=== PATIENT | female | born 1965 | race Caucasian/White ===

== ENCOUNTER → 2019-04-10 15:13 | Outpatient (BNVA) | payer OTHER, SELFPAY | PROVIDERS: Family Provider Emergency Medicine Emergency Medical Services; PCP Emergency Medicine Emergency Medical Services; Visit Provider Specialist | DX: G43.711 Chronic migraine without aura, intractable, with status migrainosus (principal) | CPT/HCPCS: 64615; J0585 ==

== ENCOUNTER → 2019-07-31 15:45 | Outpatient (BNVA) | payer OTHER, SELFPAY | PROVIDERS: Family Provider Emergency Medicine Emergency Medical Services; PCP Emergency Medicine Emergency Medical Services; Visit Provider Specialist | DX: G43.711 Chronic migraine without aura, intractable, with status migrainosus (principal) | CPT/HCPCS: 64615; J0585 ==

== ENCOUNTER 2019-09-03 00:38 | Emergency (ER) | payer OTHER, SELFPAY ==
[2019-09-03 00:39] VITALS: BP 160/99; PULSE 89; RESP 16; TEMP 36.7; O2SAT 97; BMI 25.7
--- NOTE | 2019-09-03 00:56 | XR_ITS ---
WS: [id number] XR chest 1V portable [id number] REASON FOR EXAM: Near syncope FINDINGS: Portable AP chest shows normal appearance the heart and mediastinal interfaces. Comparisons were made to October 25, 2015 with no interval changes. The lung frey are normally aerated no pneumonia, pleural effusion, pulmonary edema. The hilum and apices are normal. No osseous abnormalities. XR/XR chest 1V portable [id number] IMPRESSION: Negative chest for acute findings
--- NOTE | 2019-09-03 00:57 | CTR_ITS ---
PROCEDURE INFORMATION: Exam: CT Head Without Contrast Exam date and time: 09/03/2019 12:58 AM Age: 53 years old Clinical indication: Altered mental status/memory loss and dizziness; Additional info: Altered mental status/near syncope TECHNIQUE: Imaging protocol: Computed tomography of the head without contrast. Radiation optimization: All CT scans at this facility use at least one of these dose optimization techniques: automated exposure control; mA and/or kV adjustment per patient size (includes targeted exams where dose is matched to clinical indication); or iterative reconstruction. COMPARISON: MR head wo con* [id number] 04/15/2013 1:48 PM RADIATION DOSE METRICS: Total DLP: 945.38 mGy-cm FINDINGS: Brain: The brain is unremarkable. There is no mass effect or significant white matter disease. There is no acute intracranial hemorrhage. Ventricles: There is no significant ventricular dilation. The basal cisterns are unremarkable. Bones/joints: The calvarium is intact. Sinuses: The paranasal sinuses are clear. Mastoid air cells: The mastoid air cells are clear. Soft tissues: The visible extracranial soft tissues are unremarkable. CT/CT head wo con* [id number] IMPRESSION: No acute findings. Radiation Dose CTDIVOL = (mGy): DLP = 945.38 (mGy-cm)
[2019-09-03] MEDS: ondansetron 2 mg/ML SDV 2 mL 4 MG IVP (01:13)
[2019-09-03] MEDS: sodium chloride 0.9% 1,000 ML 100 ML IV (01:14)
--- NOTE | 2019-09-03 01:18 | ED_ITS ---
HPI - Nausea/Vomiting/Diarrhea General: Chief complaint: Nausea/Vomiting/Diarrhea Stated complaint: BLOOD PRESSURE ISSUES Time Seen by Provider: 09/03/19 00:41 History of Present Illness: HPI Narrative: Joana is a 53-year-old female who comes in complaining of waking up with difficulty with speech, feeling like her mouth was dry and having difficulty swallowing. Patient states that she has had this problem multiple times in the past and is never been able to figure out what causes the symptoms. She was having 1-2 episodes a week approximately 1- 1/2 years ago and then she had an approximate 15-month cessation of her symptoms but then developed episodes again including one in July, 1 in July and now 1 here in August. She states that usually her blood pressure will go very low with this but tonight her blood pressures been high except for 1 blood pressure in the 80s by EMS. The patient has been evaluated by the graduate fellow and he does not think it is cardiac in nature. She seen Dr. Flor who has given her an EpiPen to give herself a shot if her blood pressure stays low. Currently the patient states she is feeling gradually better. And she did wake up from sleep with the symptoms. Associated nausea: No Associated symtoms: Denies change in vision, chest pain, diaphoresis, dizziness, dysuria, fatigue, headache(s), malaise, nausea, palpitations or syncope Review of Systems Const: Denies: fever(s), chills, body aches, fatigue, malaise or diaphoresis Eyes: Denies: change in vision, blurry vision, blind spots or photophobia ENMT: Denies: throat pain, odynophagia, hoarseness, swelling of lips/tongue, ear or mastoid pain, ear discharge, change in hearing or nasal discharge Card: Denies: chest pain, palpitations, irregular heart rhythm, edema, lightheadedness, syncope, pre-syncope, dyspnea on exertion or orthopnea Resp: Denies: dyspnea, productive cough, non-productive cough, wheezing, hemoptysis or chest congestion GI: Denies: abdominal pain, nausea, vomiting, hematemesis, coffee ground emesis, heartburn, diarrhea, constipation, GI cramping, hematochezia or melena : Denies: flank pain, dysuria, urinary frequency, urinary urgency or hematuria Musc: Denies: neck pain, back pain, extremity pain, extremity swelling, joint pain, joint swelling, joint redness, joint warmth or joint stiffness Skin/Breast: Denies: rash, pruritus, erythema, skin tenderness or jaundice Neuro: Denies: headache(s), numbness in extremities, weakness in extremities, sensory changes, lack of coordination, difficulty walking, dizziness, vertigo, confusion or Slurred speech present Negro/Lymph: Denies: easy bruising, easy bleeding, petechiae, purpura or enlarged lymph nodes All/Imm: Denies: urticaria, throat swelling, tongue swelling, facial swelling or acute wheezing PFSH ED PFSH: Medical History Behcet's disease Fibromyalgia Hypertension Lupus (systemic lupus erythematosus) Raynauds disease Ulcerative colitis Social History Smoking and tobacco status: never smoked Physical Exam Const: COMMON NORMALS: no acute distress, patient oriented x3, no limitations, healthy appearing and well nourished GENERAL APPEARANCE: cooperative, well kempt and well developed HENMT: COMMON NORMALS: normocephalic, atraumatic, hearing grossly normal bilaterally, external ears normal, EAC's normal, Normal external nose present and moist oral mucous membranes HEAD & SCALP: normocephalic and atraumatic NOSE: Normal external nose present and Normal nares present EXTERNAL EAR: Yes external ears normal EXTERNAL AUDITORY CANAL: EAC's normal MOUTH: Normal oral and palatal mucosa present, lip normal and tongue normal Eye: COMMON NORMALS: Equal, round and reactive pupils present, EOMs intact bilaterally, conjunctivae normal and no scleral icterus GENERAL EYE: appearance normal, both eyes and all related structures ALIGNMENT: Yes alignment normal PERIORBITAL: periorbital findings normal EYELID: eyelids normal CONJUNCTIVA: Yes conjunctivae normal SCLERA: sclerae normal PUP IL: Yes Equal, round and reactive pupils present Neck/C-Spine: COMMON NORMALS: full ROM, no lymphadenopathy, supple, no meningeal signs and no JVD GENERAL: Yes normal visual inspection and Yes trachea midline Chest: COMMONS NORMALS: normal inspection of the chest and normal palpation of entire chest wall Resp: COMMON NORMALS: normal respiratory effort, No retractions, No use of accessory muscles and clear to auscultation bilaterally EFFORT & INSPECTION: Yes able to speak in complete sentences and Yes symmetric chest movement AUSCULTATION: clear to auscultation bilaterally, no crackles, no rales, no rhonchi and no wheezes Cardio: COMMON NORMALS: no JVD, regular rate, regular rhythm, S1 normal heart sound present, S2 normal heart sound present, No gallops present (Cardio), No clicks present (Cardio), No murmurs present (Cardio) and No rub (Cardio) RATE: regular rate RHYTHM: regular rhythm HEART SOUNDS: S1 normal heart sound present and S2 normal heart sound present GI: COMMON NORMALS: Soft to palpation and No hepatosplenomegaly present PALPATION: Yes Soft to palpation, No Tenderness to palpation present (GI), No Guarding due to palpation present (GI), No Rigid due to palpation, Yes No hepatosplenomegaly present, No Hernia present, No Palpable mass present and No Pulsatile mass present : COMMON NORMALS: Yes no CVA tenderness BLADDER/KIDNEY EXAM: Yes no CVA tenderness EXTERNAL FEMALE EXAM: No Hernia present Back/Pelvis: COMMON NORMALS: no CVA tenderness, thoracic and lumbar spine normal to inspection, no thoracic nor lumbar tenderness and thoraco-lumbar ROM n ormal Extremity: COMMON NORMALS: normal to inspection, full ROM, capillary refill normal, no joint enlargement, no clubbing, cyanosis or edema and no calf tenderness Neuro: COMMON NORMALS: patient oriented x3, CN's II-XII intact bilaterally, moves all extremities, no focal motor deficits and no sensory deficits noted MENINGEAL SIGNS: Yes no meningeal signs SPEECH: speech normal Psych: COMMON NORMALS: mental status grossly normal, Normal thought process present, cooperative, normal affect, speech normal and activity/motor behavior normal APPEARANCE: Yes well kempt SPEECH: Yes normal speech THOUGHT PROCESS: Normal thought process present Skin: COMMON NORMALS: no rashes or lesions noted, turgor normal, no jaundice, no petechiae and no mottling GENERAL SKIN EXAM: no rashes or lesions noted and turgor normal Course ED course: Arrival -patient will need a CT of her head to rule out stroke although she has no lateralizing signs and has had recurrent symptoms such as these. She understands at this time our main CT scanner is down and patients are having to be transferred to another building for this and this will delay this. Patient at this time is comfortable with this plan as she has no symptoms of stroke to her. Vital Signs: Vital signs: Vital Signs Temperature 98.0 F 09/03/19 00:39 Pulse Rate 85 09/03/19 02:00 Respiratory Rate 16 09/03/19 02:00 Blood Pressure 132/80 09/03/19 02:00 Pulse Oximetry 95 09/03/19 02:00 MDM - Nausea/Vomiting/Diarrhea MDM Narrative: Medical decision making narrative: Patient has moderately worse leukopenia than normal. She also has mild elevation her liver transaminases. I cannot determine from what she is told me what is going on. It is possible this is a Humira reaction as she had an injection earlier today. Nonetheless because of these abnormalities I have recommended and offered to admit her to the hospital but she refuses. Patient states she is back to normal and as her blood pressure did not get low at this episode she wants to go home. I have explained to her that I cannot guarantee everything will be fine with this. She understands that there is a risk of or severe permanent disability with this but she is states she has been through this so many times she does not feel that she is in danger and wants to be discharged. The patient was warned but she was welcome to return. 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 She does agree to follow-up with her doctor as soon as possible. Lab Data: Attestation: I reviewed the patient's lab results. Labs: Lab Results 09/03/19 09/03/19 09/03/19 Range/Units 01:04 01:14 01:14 WBC 2.5 L (4.0-10.0) 10^3/ uL RBC 4.00 L (4.1-5.3) 10^6/u L Hgb 13.9 (11.5-15.3) g/dL Hct 40.9 (37.0-47.0) % MCV 102.3 H (81-99) fL MCH 34.8 H (28.0-34.0) pg MCHC 34.0 (30.0-36.0) g/dL RDW 13.1 (12.1-15.1) % Plt Count 126 L (130-400) 10^3/c mm MPV 10.5 H (7.4-10.4) fL Neut % (Auto) 49.6 % Lymph % (Auto) 36.5 % Brantley % (Auto) 11.5 % Eos % (Auto) 1.6 % Baso % (Auto) 0.4 % Neut # (Auto) 1.3 L (1.8-7.7) 10^3/u L Lymph # (Auto) 0.9 (0.8-4.8) 10^3/u L Brantley # (Auto) 0.3 (0.2-0.9) 10^3/u L Eos # (Auto) 0.0 (0.0-0.8) 10^3/u L Baso # (Auto) 0.0 (0.0-0.1) 10^3/u L Nucleated RBC % (a uto) 0 % Nucleated RBCs # 0.0 /100WBC Sodium 141 (136-145) mmol/L Potassium 3.7 (3.5-5.1) mmol/L Chloride 101 (98-107) mmol/L Carbon Dioxide 29 (22-29) mmol/L Anion Gap 14.7 (5-19) BUN 25 H (6-20) mg/dL Creatinine 1.0 H (0.5-0.9) mg/dL GFR Calculation 58.0 L (90-130) mL/min Glucose 126 H (65-115) mg/dL Calculated Osmolal ity 290 (285-295) mOsm/k g Calcium 10.0 (8.5-10.5) mg/dL Magnesium 2.3 (1.7-2.3) mg/dL Total Bilirubin 0.5 (0.15-1.2) mg/dL AST 43 H (0-32) U/L ALT 76 H (0-33) U/L Alkaline Phosphata se 77 (35-105) IU/L Troponin T Baselin e 9 (0-10) ng/mL Total Protein 6.3 L (6.6-8.7) g/dL Albumin 4.2 (3.5-5.2) g/dL Globulin 2.1 (1.3-4.6) g/dL TSH 8.36 H (0.27-4.20) uIU/ mL HCG, Qual (Negative) Urine Color (Yellow) Urine Appearance (CLEAR) Urine pH (5-7) Ur Specific Gravit y (1.005-1.030) Urine Protein (Negative) Urine Glucose (UA) (Normal) Urine Ketones (Negative) Urine Blood (Negative) Urine Nitrate (Negative) Urine Bilirubin (NEGATIVE) Urine Urobilinogen (Negative) mg/dL Ur Leukocyte Jodie ase (Negative) Urine RBC (0-2) /hpf Urine WBC (0-5) /hpf Ur Squamous Epith Cells (0-5) Urine Bacteria (NONE) Urine Opiates Scre en (Negative) ng/mL Ur Barbiturates Sc reen (Negative) ng/mL Ur Phencyclidine S crn (Negative) ng/mL Ur Amphetamines Sc reen (Negative) ng/mL U Benzodiazepines Scrn (Negative) ng/mL Urine Cocaine Scre en (Negative) ng/mL U Marijuana (THC) Screen (Negative) ng/mL Ethyl Alcohol < 10 (0-10) mg/dL 09/03/19 09/03/19 09/03/19 Range/Units 01:14 01:35 01:35 WBC (4.0-10.0) 10^3/ uL RBC (4.1-5.3) 10^6/u L Hgb (11.5-15.3) g/dL Hct (37.0-47.0) % MCV (81-99) fL MCH (28.0-34.0) pg MCHC (30.0-36.0) g/dL RDW (12.1-15.1) % Plt Count (130-400) 10^3/c mm MPV (7.4-10.4) fL Neut % (Auto) % Lymph % (Auto) % Brantley % (Auto) % Eos % (Auto) % Baso % (Auto) % Neut # (Auto) (1.8-7.7) 10^3/u L Lymph # (Auto) (0.8-4.8) 10^3/u L Brantley # (Auto) (0.2-0.9) 10^3/u L Eos # (Auto) (0.0-0.8) 10^3/u L Baso # (Auto) (0.0-0.1) 10^3/u L Nucleated RBC % (a uto) % Nucleated RBCs # /100WBC Sodium (136-145) mmol/L Potassium (3.5-5.1) mmol/L Chloride (98-107) mmol/L Carbon Dioxide (22-29) mmol/L Anion Gap (5-19) BUN (6-20) mg/dL Creatinine (0.5-0.9) mg/dL GFR Calculation (90-130) mL/min Glucose (65-115) mg/dL Calculated Osmolal ity (285-295) mOsm/k g Calcium (8.5-10.5) mg/dL Magnesium (1.7-2.3) mg/dL Total Bilirubin (0.15-1.2) mg/dL AST (0-32) U/L ALT (0-33) U/L Alkaline Phosphata se (35-105) IU/L Troponin T Baselin e (0-10) ng/mL Total Protein (6.6-8.7) g/dL Albumin (3.5-5.2) g/dL Globulin (1.3-4.6) g/dL TSH (0.27-4.20) uIU/ mL HCG, Qual Negative (Negative) Urine Color Yellow (Yellow) Urine Appearance Clear (CLEAR) Urine pH 7 (5-7) Ur Specific Gravit y 1.010 (1.005-1.030) Urine Protein Neg (Negative) Urine Glucose (UA) Norm (Normal) Urine Ketones Negative (Negative) Urine Blood Neg (Negative) Urine Nitrate Negative (Negative) Urine Bilirubin Neg (NEGATIVE) Urine Urobilinogen Norm (Negative) mg/dL Ur Leukocyte Jodie ase Negative (Negative) Urine RBC Rare (0-2) /hpf Urine WBC Rare (0-5) /hpf Ur Squamous Epith Cells Rare (0-5) Urine Bacteria Trace (NONE) Urine Opiates Scre en Negative (Negative) ng/mL Ur Barbiturates Sc reen Negative (Negative) ng/mL Ur Phencyclidine S crn Negative (Negative) ng/mL Ur Amphetamines Sc reen Negative (Negative) ng/mL U Benzodiazepines Scrn Negative (Negative) ng/mL Urine Cocaine Scre en Negative (Negative) ng/mL U Marijuana (THC) Screen Negative (Negative) ng/mL Ethyl Alcohol (0-10) mg/dL Discharge Plan Discharge Patient Disposition: Left Against Medical Advice Clinical Impression: Elevated liver enzymes Leukopenia Qualifiers: Leukopenia type: unspecified Qualified Code(s): D72.819 - Decreased white blood cell count, unspecified Condition: Stable Prescriptions: No Action Botox 100 unit recon soln 155 unit SUBCUT ONCE Qty: 2 RF: 0 adalimumab 40 mg/0.8 mL pen injector kit 40 mg SUBCUT .WEEKLY RF: 0 azathioprine 100 mg tablet 200 mg PO DAILY RF: 0 colchicine 0.6 mg capsule 0.6 mg PO BID RF: 0 tizanidine 4 mg capsule 4 mg PO Q8H RF: 0 tramadol 50 mg tablet 50 mg PO QID PRNRF: 0 Discharge Orders: Discharge Order (Routine); Ordered 09/03/19 Ordered By: Marie Liao Referrals: Kishore Miguel, [Primary Care Provider] - 1-3 days Discharge Diet: Advance as tolerated Discharge Activity: Increase activity as tolerated Activity Restrictions/Additional Instructions: You're leaving AGAINST MEDICAL ADVICE and are at risk for or severe permanent disability by doing so. You are more than welcome to return at any time for recheck and for further evaluation and care suture change you change your mind. A cause for your symptoms and your abnormalities in lab have not been determined. If your symptoms change, return or worsen in any way please return to the ER immediately for recheck. Be certain to follow-up with your doctor as soon as possible for recheck and for further evaluation and care. Discharge Date/Time: 09/03/19 03:42 Coding Level of Care Code ED Asset Protection Agent for Della Fwd Exam Comprehensive
[2019-09-03 01:40] LABS: Basophils % 0.4 %; Eosinophils % 1.6 %; Hematocrit 40.9 % (37.0-47.0); Hemoglobin 13.9 g/dL (11.5-15.3); Lymphocytes # 0.9 10^3/uL (0.8-4.8); Lymphocytes % 36.5 %; Mean Corpuscular Hemoglobin 34.8 pg (28.0-34.0); Mean Corpuscular Volume 102.3 fL (81-99); Mean Platelet Volume 10.5 fL (7.4-10.4); Monocytes # 0.3 10^3/uL (0.2-0.9); Monocytes % 11.5 %; Neutrophils # 1.3 10^3/uL (1.8-7.7); Neutrophils % 49.6 %; Nucleated Red Blood Cells % 0 %; Platelet Count 126 10^3/cmm (130-400); Red Cell Distribution Width 13.1 % (12.1-15.1); White Blood Count 2.5 10^3/uL (4.0-10.0)
[2019-09-03 01:46] VITALS: BP 95/62; PULSE 73; RESP 16; O2SAT 100
[2019-09-03 02:00] VITALS: BP 132/80; PULSE 85; RESP 16; O2SAT 95
[2019-09-03 02:03] LABS: HCG, Serum Qual Negative (Negative)
[2019-09-03 02:05] LABS: Alanine Aminotransferase 76 U/L (0-33); Albumin Level 4.2 g/dL (3.5-5.2); Alkaline Phosphatase 77 IU/L (35-105); Anion Gap 14.7 (5-19); Aspartate Amino Transferase 43 U/L (0-32); Blood Urea Nitrogen 25 mg/dL (6-20); Carbon Dioxide 29 mmol/L (22-29); Chloride 101 mmol/L (98-107); Globulin 2.1 g/dL (1.3-4.6); Glucose 126 mg/dL (65-115); Magnesium 2.3 mg/dL (1.7-2.3); Osmolality Calculated 290 mOsm/kg (285-295); Potassium 3.7 mmol/L (3.5-5.1); Sodium 141 mmol/L (136-145); Thyroid Stimulating Hormone 8.36 uIU/mL (0.27-4.20); Total Bilirubin 0.5 mg/dL (0.15-1.2); Total Protein 6.3 g/dL (6.6-8.7)
[2019-09-03 02:07] LABS: Alcohol Level < 10 mg/dL (0-10)
[2019-09-03 02:25] LABS: Bacteria Urine TRACE; Bilirubin Urine Neg (NEGATIVE); Blood Urine Neg (Negative); Glucose Urine UA Norm (Normal); Ketones Urine Negative (Negative); Leukocyte Esterase Urine Negative (Negative); Nitrate Urine Negative (Negative); Protein Urine Neg (Negative); RBC Urine RARE /hpf (0-2); Squamous Epithelial Cell Urine RARE (0-5); Urine Appearance Clear (CLEAR); Urine Color Yellow (Yellow); Urobilinogen Urine Norm (Negative); WBC Urine RARE /hpf (0-5); pH Urine 7 (5-7)
[2019-09-03 03:03] LABS: Amphetamines Screen Urine Negative (Negative); Barbiturates Screen Urine Negative (Negative); Benzodiazepines Screen Urine Negative (Negative); Cocaine Screen Urine Negative (Negative); Opiate Screen Urine Negative (Negative); PCP Screen Urine Negative (Negative); THC Screen Urine Negative (Negative)
[2019-09-03 03:07] LABS: Troponin(5th) Baseline 9 ng/mL (0-10)
--- NOTE | 2019-09-03 03:09 | PC.NURSE ---
Patient has decided to go home and follow up with her pcp. Patient states she feels better and will reurn if needed. notified that [email or web address] doesn't want to stay for recommended further evaluation.
== END 2019-09-03 03:42 | disposition left against medical advice (07) ==
PROVIDERS: Emergency Provider Emergency Medicine; PCP Emergency Medicine Emergency Medical Services
DX: D72.819 Decreased white blood cell count, unspecified (principal); R74.8 Abnormal levels of other serum enzymes; I10 Essential (primary) hypertension; Z79.899 Other long term (current) drug therapy
CPT/HCPCS: 12345; 36415; 70450; 71045; 80053; 80306; 80307; 81001; 83735; 84443; 84484; 84703; 85025; 96361; 96374; 99282; 99284; J2405; J7030

== ENCOUNTER → 2019-10-23 14:49 | Outpatient (BNVA) | payer OTHER, SELFPAY | PROVIDERS: Family Provider Emergency Medicine Emergency Medical Services; PCP Emergency Medicine Emergency Medical Services; Visit Provider Specialist | DX: G43.711 Chronic migraine without aura, intractable, with status migrainosus (principal); M32.9 Systemic lupus erythematosus, unspecified; I73.00 Raynaud's syndrome without gangrene; M79.7 Fibromyalgia; K51.90 Ulcerative colitis, unspecified, without complications; R55 Syncope and collapse | CPT/HCPCS: 64615; 99213; J0585 ==

== ENCOUNTER → 2020-03-11 15:09 | Outpatient (BNVA) | payer OTHER, SELFPAY | PROVIDERS: Family Provider Emergency Medicine Emergency Medical Services; PCP Emergency Medicine Emergency Medical Services; Visit Provider Specialist | DX: G43.711 Chronic migraine without aura, intractable, with status migrainosus (principal); M32.9 Systemic lupus erythematosus, unspecified | CPT/HCPCS: 64615; J0585 ==

== ENCOUNTER 2020-03-30 09:03 | Outpatient (CLI) | payer OTHER, SELFPAY ==
--- NOTE | 2020-03-30 11:27 | XRR_ITS ---
PROCEDURE INFORMATION: Exam: XR Left Femur Exam date and time: 03/30/2020 11:30 AM Age: 54 years old Clinical indication: Patient HX: C/O pain left hip and thigh; Additional info: Pain in left hip thigh TECHNIQUE: Imaging protocol: XR Left femur. Views: 2 views. COMPARISON: No relevant prior studies available. FINDINGS: Bones/joints: No fracture. No dislocation. No hip or knee joint space narrowing. No periosteal reaction. No bone destruction. Soft tissues: No acute soft tissue abnormality. XR/XR femur LT min 2V* [id number] IMPRESSION: No acute osseous abnormality.
--- NOTE | 2020-03-30 11:27 | XRR_ITS ---
PROCEDURE INFORMATION: Exam: XR Left Hip with Pelvis when Performed Exam date and time: 03/30/2020 11:30 AM Age: 54 years old Clinical indication: Hip pain; Patient HX: C/O pain left hip and thigh for 6 weeks; Additional info: Pain in L hip thigh TECHNIQUE: Imaging protocol: XR Left hip with pelvis when performed. Views: 2 or 3 views. COMPARISON: CT Chest/Abdomen/Pelvis w IV* 09/21/2017 11:18 AM FINDINGS: Bones/joints: No fracture. No dislocation. No hip joint space narrowing. No periosteal reaction. No bone destruction. 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 Soft tissues: No acute soft tissue abnormality. XR/XR hip LT 2-3V wo/w pel* [id number] IMPRESSION: No acute osseous abnormality.
[2020-03-30 12:14] LABS: Basophils % 0.6 %; Eosinophils % 0.9 %; Hematocrit 47.1 % (37.0-47.0); Hemoglobin 15.4 g/dL (11.5-15.3); Lymphocytes # 1.1 10^3/uL (0.8-4.8); Lymphocytes % 34.2 %; Mean Corpuscular HGB Conc 32.7 g/dL (30.0-36.0); Mean Corpuscular Hemoglobin 32.8 pg (28.0-34.0); Mean Corpuscular Volume 100.2 fL (81-99); Mean Platelet Volume 9.7 fL (7.4-10.4); Monocytes # 0.3 10^3/uL (0.2-0.9); Monocytes % 8.1 %; Neutrophils # 1.81 10^3/uL (1.8-7.7); Neutrophils % 56.2 %; Nucleated Red Blood Cells % 0 %; Platelet Count 151 10^3/cmm (130-400); Red Cell Distribution Width 12.1 % (12.1-15.1); White Blood Count 3.2 10^3/uL (4.0-10.0)
[2020-03-30 12:30] LABS: LAB Peripheral Smear Sent for Review
[2020-03-30 12:39] LABS: Alanine Aminotransferase 25 U/L (0-33); Albumin Level 4.3 g/dL (3.5-5.2); Alkaline Phosphatase 80 IU/L (35-105); Anion Gap 12.2 (5-19); Aspartate Amino Transferase 22 U/L (0-32); Blood Urea Nitrogen 18 mg/dL (6-20); Calcium 9.9 mg/dL (8.5-10.5); Carbon Dioxide 31 mmol/L (22-29); Chloride 101 mmol/L (98-107); Globulin 2.9 g/dL (1.3-4.6); Glomerular Filtration Rate 87.2 mL/min (90-130); Glucose 119 mg/dL (65-115); Lactate Dehydrogenase 151 U/L (135-214); Osmolality Calculated 293 mOsm/kg (285-295); Potassium 4.2 mmol/L (3.5-5.1); Sodium 140 mmol/L (136-145); Total Bilirubin 0.7 mg/dL (0.15-1.2); Total Protein 7.2 g/dL (6.6-8.7)
[2020-03-30 12:54] LABS: Erythrocyte Sedimentation Rate 8 mm/hr (0-15)
--- NOTE | 2020-03-30 14:50 | ONC CON_ITS ---
Dr. Frausto New Patient Note Patient: Joana Monahan Unit #: [id number]: 1965 Dicatated By: Nam Frausto M.D.Date of Visit: Mar 30, 2020 Onc MED New Patient/Consult Referring Physician: Eri Hou Dr., M.D. Chief Complaint: High blood count. History of Present Illness: This is a 54-year-old woman with elevated hemoglobin/hematocrit levels. She has multiple medical illnesses including hypertension, asthma, and degenerative disease of the cervical spine. She also has multiple autoimmune disorders including Behcet's syndrome, systemic lupus erythematosus, Raynaud's phenomenon, and ulcerative colitis. She has additional diagnoses of irritable bowel syndrome and fibromyalgia. I am asked to see her in regard to elevated hemoglobin/hematocrit levels. She says they have been elevated to varying degrees for the past 4 years or so. In reviewing her laboratory studies from [place], she had a total of 4 CBCs done between May 22, 2019 and March 11, 2020. These showed mildly elevated hemoglobin levels, ranging from 15.1 to 16.0 g with hematocrit levels ranging from 45.9% to 47.6%. The red cell indices were slightly macrocytic. White blood cell counts have been borderline low to slightly decreased, ranging from 3.5 to 4.3. Platelet counts have consistently been normal, ranging from 140,000 to 173,000. She complains that she has difficulty sleeping and that she is fatigued during the daytime. However, she is doing housework and she walks daily. Her ECOG score is 1. Her appetite comes and goes. She did previously been able to lose 70 pounds, but since summer she has regained 16 pounds. She has not had fever. She does tend to feel warm every evening and she keeps her bedroom temperature at 60 degrees to keep from sweating at night. She intermittently has mild sores associated with the Behcet's syndrome. She sometimes has shortness of breath. She uses her inhaler just very occasionally. She has not had chest pain. Despite having hypertension, she has had episodes of low blood pressure occurring at night. She does not complain of nausea. She does have acid reflux symptoms. Her bowel function tends to vary between constipation and diarrhea. She says that once a year she has to take steroid therapy for 1 to 2 months for liquid bloody stools. Bladder function has been okay except for occasional incontinence. She does get vaginal ulcers with the Behcet's syndrome. She sees a chiropractor once a week for neck pain and torticollis. She also has some joint pain, mainly in the knees and ankles. Recently she has been having bone pain in her left hip and femur. She has chronic migraine, for which she has been getting Botox injections. She has no focal neurologic symptoms, but she does report having occasional hallucinations. Past Medical History: Her medical history includes asthma, Behcet's disease, chronic migraine, degenerative disease of the cervical spine, fibromyalgia, hypertension, intraventricular septal hypertrophy (HOCM), irritable bowel syndrome, Raynaud's phenomenon, systemic lupus erythematosus, ulcerative colitis, and visual hallucinations. Past Surgical History: Her procedural history includes bladder sling x 2, cervical fusions at C4-5 and at C5-6, section x 3, hysterectomy with left unilateral oophorectomy, sinus surgery x 2, tubal ligation in 1996 followed by reanastomosis in 2000, wrist surgery bilaterally, left inguinal node excision in 2012, tracholectomy and right oophorectomy in 2009, and mammoplasty, mastoplexy, abdominoplasty in 1998. Medications: Acetaminophen 2 Tablet (of 500 mg) Oral daily, Adalimumab 1 Dose(s) (of 40 mg/0.8mL) Subcutaneous q, Adult Gummy 2 Tablet Tablet, chewable Oral daily, Albuterol Sulfate 2 Puff(s) (of 108 (90 base) mcg/act) Aerosol Powder, Breath Activated Inhalation PRN, Amino Acids 2 Capsule Oral daily, B Complex 1 Tablet Oral daily, Calcium 1 Tablet (of 500 mg) Oral daily, Colchicine 1 Tablet (of 0.6 mg) Oral b.i.d., Cyclobenzaprine HCl (10 mg) Tablet Oral daily, Elderberry 2 Tablet Syrup Oral daily, Furosemide 1 Tablet (of 40 mg) Oral PRN, liver essential 3 Capsule daily, Magnesium 2 Capsule (of 400 mg) Oral daily, Melatonin 1 Tablet (of 5 mg) Oral at bedtime, Probiotic Daily 1 Capsule Oral daily, probiotic/prebiotic/fiber 2 Capsule daily, QUEtiapine Fumarate ER 1 Tablet (of 150 mg) Tablet SR 24 HR Oral daily, Vitamin C 2 Capsule (of 500 mg) Oral b.i.d., Zinc Gluconate 1 Capsule (of 50 mg) Oral daily Allergies: Band-Aid Clear Assorted, grass, Sulfa Drugs, and wheat. Social History: Ms. Monahan is . 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 She is a non-smoker. She drinks wine 3 times a week. Family History: Both parents are still living, father at age 78 and mother at age 76. Father has heart disease and he also has Graves' disease, as does his sister. Mother has been treated for kidney cancer. A sister has alcoholism and heart disease. Review Of Symptoms: Constitutional - She generally feels fatigued. Her energy is fair. She works full-time from home. She is able to do house work and light to moderate walking daily. Her appetite is good and she has gained about 16 pounds since last summer. No fevers. She has hot flashes with sweating nearly every evening. ECOG score is 1, ENMT - She has chronic sinusitis. No mouth sores. No sore throat or difficulty swallowing, Hematologic/Lymphatic - She bruises easily, Respiratory - She has occasional shortness of breath and uses albuterol nebulizers. No cough. No pleuritic pain or hemoptysis, Cardiovascular - No angina pain. No palpitations, Gastrointestinal - No nausea or vomiting. She has occasional acid reflux, she uses apple cider vinegar for this. She has ulcerative colitis. No diarrhea or constipation. No blood in the stool or black stools. She has a colonoscopy last week, Genitourinary (F) - No dysuria or hematuria. No urinary frequency. No urgency or incontinence, Musculoskeletal - She has been having left sided hip pain that radiates down into her femur, Integumentary - No skin complications, Neurologic - No headache. She sometimes feels dizzy. No numbness or tingling. No other focal neurologic symptoms. She has Raynaud's, Psychiatric - She has anxiety. No depression. She does not sleep well. Vital Signs: Performed on Mar 30, 2020 09:25: 3, 27.78, 2.11 sq.m, 71.00 in, 98 %, 69 /min, 15 /min, 139/83 mm(hg), 97.4 F (LOW), and 199.2 lbs (LOW). Physical Examination: Constitutional - She does not appear acutely ill, Eyes - Sclerae nonicteric. Conjunctivae clear, ENMT - No lesions noted in the oral cavity, Neck - No mass or thyromegaly, Hematologic/Lymphatic - No cervical, clavicular, or axillary adenopathy, Respiratory - Lungs are clear with good air movement bilaterally, Cardiovascular - Heart rhythm is regular. There is no murmur, gallop, or rub noted, Abdomen - Soft and non-tender. Liver and spleen are not enlarged. There is no abdominal mass or ascites noted. There is no inguinal adenopathy noted, Extremities - No edema. Her feet are cold to touch, but pedal pulses are palpable bilaterally, Integumentary - No rashes. No suspicious skin lesions noted, Neurologic - No focal neurologic deficits noted. Impression: 1. Patient with mildly elevated hemoglobin/hematocrit levels. Etiology is uncertain, but the clinical picture would appear to be most consistent with decreased plasma volume, i.e stress erythrocytosis . There is no evidence for secondary polycythemia due to underlying hypoxia. Polycythemia vera also appears unlikely by clinical evaluation, though at this point it is not excluded. 2. She has recent onset of new bone pain in her left hip/left femur. 3. She has red blood cell macrocytosis and mild leukopenia, which is most likely medication related. Her other medical illnesses include: 4. Asthma. 5. Hypertension. 6. Behcet's syndrome. 7. Systemic lupus erythematosus. 8. Raynaud's phenomenon. 9. Ulcerative colitis. 10. Irritable bowel syndrome. 11. Fibromyalgia. 12. Degenerative disease of the cervical spine. 13. Chronic migraine. 13. Interventricular septal hypertrophy. Plan: The laboratory findings reviewed with the patient and we discussed the clinic complications. She has mildly elevated hemoglobin/hematocrit levels. By clinical evaluation, this would appear to be most likely due to a decreased plasma volume, though polycythemia rubra vera at this point is not excluded. We discussed the fact that this is not an hematologic disorder per se, as theoretically she would be producing a normal amount of blood cells and that it generally does not require treatment. At this point I will obtain additional laboratory studies to include CBC, comprehensive metabolic profile, sed rate, LDH level, and erythropoietin level. I will review the blood smear and I will check JAK2 gene mutation studies. She will have further evaluation as indicated. In the meantime, due to complains of new bone pain in her left hip and thigh area, I also will request x-rays of the left hip and femur. Signed By: Nam Frausto M.D. <<Signature on File>>
[2020-03-31 14:57] LABS: Erythropoietin 15.5 mIU/mL (2.6-18.5)
[2020-04-06 09:44] LABS: CALR Exon 9 Mutation NOT DETECTED (NOT DETECTED); CSF3R Exon 14/17 Mutation NOT DETECTED (NOT DETECTED); JAK2 Exon 12 Mutation NOT DETECTED (NOT DETECTED); JAK2 V617 Block Specimen ID NG; JAK2 V617 Clinical Indication NG; JAK2 V617 Mutation NOT DETECTED (NOT DETECTED); JAK2 V617 Specimen Source BLOOD; MPL Exon 12 Mutation NOT DETECTED (NOT DETECTED)
== END 2020-03-30 09:04 | disposition home or self-care (01) ==
PROVIDERS: PCP Emergency Medicine Emergency Medical Services; Visit Provider Internal Medicine Medical Oncology
DX: D75.1 Secondary polycythemia (principal); M25.552 Pain in left hip; M79.652 Pain in left thigh; D75.89 Other specified diseases of blood and blood-forming organs; D72.819 Decreased white blood cell count, unspecified; R53.83 Other fatigue; J45.909 Unspecified asthma, uncomplicated; I10 Essential (primary) hypertension; M35.2 Behcet's disease; M32.9 Systemic lupus erythematosus, unspecified; I73.00 Raynaud's syndrome without gangrene; K51.90 Ulcerative colitis, unspecified, without complications; M79.7 Fibromyalgia; M89.8X8 Other specified disorders of bone, other site; G43.709 Chronic migraine without aura, not intractable, without status migrainosus; I51.7 Cardiomegaly
CPT/HCPCS: 36415; 73502; 73552; 80053; 82668; 83615; 85025; 85651; 99205

== ENCOUNTER → 2020-06-03 15:46 | Outpatient (BNVA) | payer OTHER, SELFPAY | PROVIDERS: PCP Emergency Medicine Emergency Medical Services; Visit Provider Specialist | DX: G43.711 Chronic migraine without aura, intractable, with status migrainosus (principal); R55 Syncope and collapse; M35.2 Behcet's disease; K51.90 Ulcerative colitis, unspecified, without complications | CPT/HCPCS: 64615; J0585 ==

== ENCOUNTER 2020-08-10 14:29 | Outpatient (CLI) | payer OTHER, SELFPAY ==
[2020-08-10 15:05] LABS: Basophils % 0.2 %; Eosinophils # 0.1 10^3/uL (0.0-0.8); Eosinophils % 1.4 %; Hematocrit 46.4 % (37.0-47.0); Hemoglobin 15.3 g/dL (11.5-15.3); Lymphocytes # 1.3 10^3/uL (0.8-4.8); Lymphocytes % 31.1 %; Mean Corpuscular Hemoglobin 32.8 pg (28.0-34.0); Mean Corpuscular Volume 99.6 fL (81-99); Monocytes # 0.4 10^3/uL (0.2-0.9); Monocytes % 9.8 %; Neutrophils # 2.39 10^3/uL (1.8-7.7); Neutrophils % 57.3 %; Nucleated Red Blood Cells % 0 %; Platelet Count 150 10^3/cmm (130-400); Red Blood Count 4.66 10^6/uL (4.1-5.3); Red Cell Distribution Width 12.4 % (12.1-15.1); White Blood Count 4.2 10^3/uL (4.0-10.0)
[2020-08-10 15:56] LABS: Alanine Aminotransferase 28 U/L (0-33); Albumin Level 4.4 g/dL (3.5-5.2); Alkaline Phosphatase 97 IU/L (35-105); Anion Gap 12.1 (5-19); Aspartate Amino Transferase 21 U/L (0-32); Blood Urea Nitrogen 25 mg/dL (6-20); Calcium 9.1 mg/dL (8.5-10.5); Carbon Dioxide 26 mmol/L (22-29); Chloride 103 mmol/L (98-107); Globulin 2.5 g/dL (1.3-4.6); Glomerular Filtration Rate 87.2 mL/min (90-130); Glucose 96 mg/dL (65-115); Osmolality Calculated 288 mOsm/kg (285-295); Potassium 4.1 mmol/L (3.5-5.1); Sodium 137 mmol/L (136-145); Total Bilirubin 0.4 mg/dL (0.15-1.2); Total Protein 6.9 g/dL (6.6-8.7)
[2020-08-10 16:05] LABS: Lactate Dehydrogenase 159 U/L (135-214)
--- NOTE | 2020-08-14 13:32 | ONC FU_ITS ---
Dr. Frausto Patient Follow-Up Note Patient: Joana Monahan Unit #: [id number]: 1965 Dicatated By: Nam Frausto M.D.Date of Visit:August 10, 2020 Onc Med Follow-up/Prog Note Chief Complaint: High blood count. History of Present Illness: This is a 54-year-old woman with elevated hemoglobin/hematocrit levels. She has multiple medical illnesses including hypertension, asthma, and degenerative disease of the cervical spine. She also has multiple autoimmune disorders including Behcet's syndrome, systemic lupus erythematosus, Raynaud's phenomenon, and ulcerative colitis. She has additional diagnoses of irritable bowel syndrome and fibromyalgia. I had initially seen her on 03/30/2020 in regard to elevated hemoglobin/hematocrit levels. [facility], she had a total of 4 CBCs done between May 22, 2019 and March 11, 2020. These showed mildly elevated hemoglobin levels, ranging from 15.1 to 16.0 g with hematocrit levels ranging from 45.9% to 47.6%. The red cell indices were slightly macrocytic. White blood cell counts had been borderline low to slightly decreased, ranging from 3.5 to 4.3. Platelet counts were consistently normal, ranging from 140,000 to 173,000. Her laboratory evaluation in March 2020 included CBC showing hemoglobin 15.4 g with hematocrit 47.1%. The red cell indices were borderline macrocytic. The white blood cell count was low at 3200 with the differential showing 56% neutrophils, 34% lymphocytes, and 8% monocytes. The platelet count was normal at 151,000. Comprehensive metabolic profile was unremarkable. LDH was normal at 151 U/L. The erythropoietin level was 15.5 mIU/mL. Her molecular analysis was unrevealing with the JAK2 [id number] and the JAK2 exon 12 mutations not detected. With those findings, expectant management was recommended. She is seen for a follow-up visit. She indicates that she has had a recent flareup of her Behcet's syndrome, which typically happens about once a year. She says it is clearing up. She has had good energy and activity tolerance. ECOG score is 0. Her appetite has been good. She has not had fever or night sweats, but she does tend to get hot and flushed in the evenings, typically around 9:51 PM. She has no shortness of breath, cough, or chest pain. She has no GI complaints are that her stools are very loose, attributable to a seasonal flare of ulcerative colitis. Her bladder function has been normal for her. She has chronic pain and she sees a chiropractor weekly. The most significant is in her wrist, knees, ankles, and in her neck and back. She has headaches, which are managed with Botox. She tends to get dizzy when she looks up. She has no numbness/paresthesia or other focal neurologic symptoms. Medications: Acetaminophen 2 Tablet (of 500 mg) Oral daily, Adalimumab 1 Dose(s) (of 40 mg/0.8mL) Subcutaneous q, Adult Gummy 2 Tablet Tablet, chewable Oral daily, Albuterol Sulfate 2 Puff(s) (of 108 (90 base) mcg/act) Aerosol Powder, Breath Activated Inhalation PRN, Amino Acids 2 Capsule Oral daily, B Complex 1 Tablet Oral daily, Calcium 1 Tablet (of 500 mg) Oral daily, Colchicine 1 Tablet (of 0.6 mg) Oral b.i.d., Cyclobenzaprine HCl (10 mg) Tablet Oral daily, Elderberry 2 Tablet Syrup Oral daily, Furosemide 1 Tablet (of 40 mg) Oral PRN, liver essential 3 Capsule daily, Magnesium 2 Capsule (of 400 mg) Oral daily, Melatonin 1 Tablet (of 5 mg) Oral at bedtime, Probiotic Daily 1 Capsule Oral daily, probiotic/prebiotic/fiber 2 Capsule daily, QUEtiapine Fumarate ER 1 Tablet (of 150 mg) Tablet SR 24 HR Oral daily, Vitamin C 2 Capsule (of 500 mg) Oral b.i.d., Zinc Gluconate 1 Capsule (of 50 mg) Oral daily Allergies: Band-Aid Clear Assorted, grass , Sulfa Drugs, and wheat. Vital Signs: Performed on August 10, 2020 16:11 Height - 71.00 in Weight - 195.6 lbs (LOW) BSA - 2.09 sq.m BMI - 27.28 Temperature - 97.5 F (LOW) Pulse - 89 /min Respiration - 18 /min BP - 146/90 mm(hg) (HIGH) O2 Sat - 97 % Pain - 4 Fatigue - 4 Physical Examination: Constitutional - She looks pretty good generally, Eyes - Sclerae nonicteric. Conjunctivae clear, ENMT - No lesions noted in the oral cavity, Hematologic/Lymphatic - No cervical, clavicular, or axillary adenopathy, Respiratory - Lungs sound clear, Cardiovascular - Heart rhythm is regular. There is no murmur, gallop, or rub noted, Abdomen - Soft and non-tender. Liver and spleen are not enlarged. There is no abdominal mass or ascites noted. There is no inguinal adenopathy noted, Extremities - No edema, Neurologic - No focal neurologic deficits noted. Lab/Imaging: Test performed on August 10, 2020 14:45 LDH (Total) 159 U/L Sodium 137 mmol/L Potassium 4.1 mmol/L Chloride 103 mmol/L CO2 26 mmol/L Anion Gap 12.1 BUN 25 mg/dL Creatinine 0.7 mg/dL Cr Clearance (Est) 128.69 mL/min eGFR 87.2 mL/min Glucose 96 mg/dL Osmolality - Calculated 288 mOsm/kg Calcium 9.1 mg/dL Protein, Total 6.9 g/dL Albumin 4.4 g/dL Globulin 2.5 g/dL Bilirubin, Total 0.4 mg/dL ALT (SGPT) 28 U/L AST (SGOT) 21 U/L Alkaline Phosphatase 97 IU/L WBC 4.2 10 3/uL RBC 4.66 10 6/uL HGB 15.3 g/dL HCT 46.4 % MCV 99.6 fL MCH 32.8 pg MCHC 33.0 g/dL RDW 12.4 % Platelet Count 150 10 3/cmm MPV 10.0 fL Neutrophils 2.39 10 3/uL Lymphocytes 1.3 10 3/uL Monocytes 0.4 10 3/uL Eosinophils 0.1 10 3/uL Basophils 0.0 10 3/uL Neutrophil % 57.3 % Lymphocyte % 31.1 % Monocyte % 9.8 % Eosinophil % 1.4 % Basophils % 0.2 % NRBC % 0 % Problem List: 1. Patient with mildly elevated hemoglobin/hematocrit levels. The clinical picture is most consistent with decreased plasma volume, i.e stress erythrocytosis . 2. She has mild red blood cell macrocytosis and mild leukopenia, most likely medication related. 3. Asthma. 4. Hypertension. 5. Behcet's syndrome. 6. Systemic lupus erythematosus. 7. Raynaud's phenomenon. 8. Ulcerative colitis. 9. Irritable bowel syndrome. 10. Fibromyalgia. 11. Degenerative disease of the cervical spine. 12. Chronic migraine. 13. Interventricular septal hypertrophy. Problems Addressed with this Encounter and Plan: 1. Patient with mildly elevated hemoglobin/hematocrit levels. The clinical picture is most consistent with decreased plasma volume, i.e stress erythrocytosis , as there has been no clinical evidence for secondary polycythemia due to underlying hypoxia and there are no findings to suggest polycythemia vera. With just borderline high to mildly elevated hemoglobin/hematocrit levels, she can be managed expectantly. At this point she is recommended to [facility], which should include repeat blood counts least every 6 to 12 months. I can see her again if there are any significant changes in her blood count or clinical status. 2. She has had CT scans done recently [facility], and I will obtain those for review. Signed By: Nam Frausto M.D. <<Signature on File>>
== END 2020-08-10 14:30 | disposition home or self-care (01) ==
PROVIDERS: PCP Emergency Medicine Emergency Medical Services; Visit Provider Internal Medicine Medical Oncology
DX: D75.1 Secondary polycythemia (principal); D75.89 Other specified diseases of blood and blood-forming organs; J45.909 Unspecified asthma, uncomplicated; I10 Essential (primary) hypertension; M35.2 Behcet's disease; L93.0 Discoid lupus erythematosus; I73.00 Raynaud's syndrome without gangrene; K51.90 Ulcerative colitis, unspecified, without complications; K58.8 Other irritable bowel syndrome; M79.7 Fibromyalgia; G43.919 Migraine, unspecified, intractable, without status migrainosus; I51.7 Cardiomegaly; Z79.899 Other long term (current) drug therapy
CPT/HCPCS: 36415; 80053; 83615; 85025; 99214

== ENCOUNTER → 2020-08-26 14:28 | Outpatient (BNVA) | payer OTHER, SELFPAY | PROVIDERS: PCP Emergency Medicine Emergency Medical Services; Visit Provider Specialist | DX: G43.709 Chronic migraine without aura, not intractable, without status migrainosus (principal) | CPT/HCPCS: 64615; J0585 ==

== ENCOUNTER 2020-11-18 16:01 | Outpatient (CLI) | payer OTHER, SELFPAY ==
--- NOTE | 2020-11-18 16:28 | MR_ITS ---
WS: [id number] INDICATION: TMJ pain TECHNIQUE: MRI TMJ without gadolinium enhancement. Coronal and sagittal closed mouth imaging obtained . T1 axial imaging. Coronal and sagittal PD, T2 and gradient imaging. FINDINGS: RIGHT TEMPOROMANDIBULAR JOINT: Mild to moderate degenerative changes involving the mandibular condyle and articular eminence. No effusion. Retrodiscal tissue appears normal. Right TMJ-Closed mouth: Normal position of the mandibular condyle in the closed position. Normal morp hology and position of the articular disc. The posterior band is normal in position at 12:00 Right TMJ-Open mouth: Normal anterior excursion of the mandibular condyle in the open position. The a rticular disc is completely recaptured on mouth opening. Thinning of the articular disc intermediate zone with suspected central perforation. LEFT TEMPOROMANDIBULAR JOINT: Mild to moderate degenerative changes involving the mandibular condyle and articular eminence. No effusion. Retrodiscal tissue appears normal. Left TMJ-Closed mouth: Normal position of the mandibular condyle in the closed position. Normal morph ology with mild anterior displacement of the articular disc. The posterior band is at the 10:00 posit ion. Left TMJ-Open mouth: Normal anterior excursion of the mandibular condyle in the open position. The ar ticular disc is recaptured on mouth opening. Thinning of the articular disc at the intermediate zone . No perforation. Soft tissues: Lateral pterygoid muscles appear normal. Mucosal thickening with partial opacification the paranasal sinuses. Left maxillary retention cyst me asures 2.3 CM. Polypoid mucosal thickening right maxillary sinus. MR/MR TMJ wo con [id number] IMPRESSION: 1. Mild to moderate degenerative changes involving the mandibular condyles and articular eminence bilaterally. No articular edema. 2. LEFT: Slight anterior displacement of the articular disc with complete reca pture on mouth opening 3. RIGHT: Normal position of the articular disc in the closed position with co mplete recapture on mouth opening. Thinning of the articular disc intermediate zone with suspected perforation
== END 2020-11-18 16:02 | disposition home or self-care (01) ==
LOC: RADSHAW 16:06
PROVIDERS: PCP Emergency Medicine Emergency Medical Services; Visit Provider Emergency Medicine Emergency Medical Services
DX: G43.709 Chronic migraine without aura, not intractable, without status migrainosus (principal); G24.4 Idiopathic orofacial dystonia; M26.609 Unspecified temporomandibular joint disorder, unspecified side
CPT/HCPCS: 64615; 70336; J0585

== ENCOUNTER → 2021-02-22 15:39 | Outpatient (BNVA) | payer OTHER, SELFPAY | PROVIDERS: PCP Emergency Medicine Emergency Medical Services; Visit Provider Specialist | DX: G24.4 Idiopathic orofacial dystonia (principal); G43.911 Migraine, unspecified, intractable, with status migrainosus | CPT/HCPCS: 64612; 64615; J0585 ==

== ENCOUNTER 2021-04-27 13:58 | Outpatient (CLI) | payer OTHER, SELFPAY ==
--- NOTE | 2021-04-29 16:14 | ONC FU_ITS ---
Dr. Frausto Patient Follow-Up Note Patient: Joana Monahan Unit #: [id number]: 1965 Dicatated By: Nam Frausto M.D.Date of Visit:Apr 27, 2021 Onc Med Follow-up/Prog Note Chief Complaint: High blood count. History of Present Illness: This is a 55 year-old woman with elevated hemoglobin/hematocrit levels. I had initially seen her on 03/30/2020 in regard to elevated hemoglobin/hematocrit levels. In [facility], she had a total of 4 CBCs done between May 22, 2019 and March 11, 2020. These showed mildly elevated hemoglobin levels, ranging from 15.1 to 16.0 g with hematocrit levels ranging from 45.9% to 47.6%. The red cell indices were slightly macrocytic. White blood cell counts had been borderline low to slightly decreased, ranging from 3.5 to 4.3. Platelet counts were consistently normal, ranging from 140,000 to 173,000. Her laboratory evaluation in March 2020 included CBC showing hemoglobin 15.4 g with hematocrit 47.1%. The red cell indices were borderline macrocytic. The white blood cell count was low at 3200 with the differential showing 56% neutrophils, 34% lymphocytes, and 8% monocytes. The platelet count was normal at 151,000. Comprehensive metabolic profile was unremarkable. LDH was normal at 151 U/L. The erythropoietin level was 15.5 mIU/mL. Her molecular analysis was unrevealing with the JAK2 [id number] and the JAK2 exon 12 mutations not detected. With those findings, expectant management was recommended. Her other medical illnesses include hypertension, asthma, and degenerative disease of the cervical spine. She also has multiple autoimmune disorders including Behcet's syndrome, systemic lupus erythematosus, Raynaud's phenomenon, and ulcerative colitis. She has additional diagnoses of irritable bowel syndrome and fibromyalgia. She is a nonsmoker. She is seen for a follow-up visit. She says her energy has not been high, but some of that she just attributes to stress. She has been working from home. Her ECOG score is 1. She has good appetite. She has not had fever. She wakes up sweaty on a daily basis. She has sinus drainage and she has been having TMJ pain bilaterally. She does not complain of cough. Her breathing has been OK with her inhaler. She has not had chest pain. She has been having bad indigestion for the past month. She says she has been all kinds of bowel issues, including diarrhea for the past 3 days. Bladder function has been OK. She complains that everything aches. She sees a chiropracter weekly. She has been getting Botox injections for migraines. She has ongoing Raynauds symptoms. She has anxiety and depression. Medications: Acetaminophen 2 Tablet (of 500 mg) Oral daily, Adalimumab 1 Dose(s) (of 40 mg/0.8mL) Subcutaneous q, Adult Gummy 2 Tablet Tablet, chewable Oral daily, Albuterol Sulfate 2 Puff(s) (of 108 (90 base) mcg/act) Aerosol Powder, Breath Activated Inhalation PRN, Amino Acids 2 Capsule Oral daily, B Complex 1 Tablet Oral daily, Botox (100 Unit(s)) Injection q 12 weeks, Calcium 1 Tablet (of 500 mg) Oral daily, Colchicine 1 Tablet (of 0.6 mg) Oral b.i.d., Cyclobenzaprine HCl (10 mg) Tablet Oral daily, Dihydroergotamine Mesylate Solution Nasal PRN, Elderberry 2 Tablet Syrup Oral daily, Furosemide 1 Tablet (of 40 mg) Oral PRN, liver essential 3 Capsule daily, Magnesium 2 Capsule (of 400 mg) Oral daily, Melatonin 1 Tablet (of 5 mg) Oral at bedtime, Probiotic Daily 1 Capsule Oral daily, probiotic/prebiotic/fiber 2 Capsule daily, QUEtiapine Fumarate ER 1 Tablet (of 150 mg) Tablet SR 24 HR Oral daily, Vitamin C 2 Capsule (of 500 mg) Oral b.i.d., Zinc Gluconate 1 Capsule (of 50 mg) Oral daily Allergies: Band-Aid Clear Assorted, grass , Sulfa Drugs, and wheat . Vital Signs: Performed on Apr 27, 2021 14:50 Height - 71.00 in Weight - 199.2 lbs (HIGH) BSA - 2.11 sq.m BMI - 27.78 Temperature - 97.9 F (LOW) Pulse - 65 /min Respiration - 16 /min BP - 139/84 mm(hg) O2 Sat - 95 % (LOW) Pain - 4 Fatigue - 5 Physical Examination: Constitutional - She looks pretty good generally, Eyes - Sclerae nonicteric. Conjunctivae clear, ENMT - No lesions noted in the oral cavity, Hematologic/Lymphatic - No cervical, clavicular, or axillary adenopathy, Respiratory - Lungs sound clear, Cardiovascular - Heart rhythm is regular. There is no murmur, gallop, or rub noted, Abdomen - Soft. Liver and spleen are not enlarged. There is no abdominal mass or ascites noted. There is no inguinal adenopathy noted, Extremities - No edema, Neurologic - No focal neurologic deficits noted. Lab/Imaging: CBC shows hemoglobin 16.0 g with hematocrit 49.6%, white blood cell count 4100, and platelet count 173,000. Comprehensive metabolic shows stable renal function with BUN 15 and creatinine 0.82 mg/dL. Bilirubin and liver enzymes are normal. Problem List: 1. Patient with mildly elevated hemoglobin/hematocrit levels. The clinical picture is most consistent with decreased plasma volume, i.e stress erythrocytosis . 2. She has mild red blood cell macrocytosis and mild leukopenia, most likely medication related. 3. Asthma. 4. Hypertension. 5. Behcet's syndrome. 6. Systemic lupus erythematosus. 7. Raynaud's phenomenon. 8. Ulcerative colitis. 9. Irritable bowel syndrome. 10. Fibromyalgia. 11. Degenerative disease of the cervical spine. 12. Chronic migraine. 13. Interventricular septal hypertrophy. Problems Addressed with this Encounter and Plan: Patient with mildly elevated hemoglobin/hematocrit levels. The clinical picture has been most consistent with decreased plasma volume, i.e stress erythrocytosis , as there has been no clinical evidence for secondary polycythemia due to underlying hypoxia and there are no findings to suggest polycythemia vera. With just borderline high to mildly elevated hemoglobin/hematocrit levels, she can be managed expectantly. At this point she is recommended to continue her regular follow-up at the [place], which should include repeat blood counts least every 6 to 12 months. I can see her again if there are any significant changes in her blood count or clinical status. Signed By: Nam Frausto M.D. <<Signature on File>>
== END 2021-04-27 13:59 | disposition home or self-care (01) ==
LOC: ONCMED 14:02
PROVIDERS: PCP Emergency Medicine Emergency Medical Services; Visit Provider Internal Medicine Medical Oncology
DX: D58.2 Other hemoglobinopathies (principal); D75.89 Other specified diseases of blood and blood-forming organs; J45.909 Unspecified asthma, uncomplicated; M35.2 Behcet's disease; M32.9 Systemic lupus erythematosus, unspecified; I73.00 Raynaud's syndrome without gangrene; K58.9 Irritable bowel syndrome, unspecified; M79.7 Fibromyalgia; M50.30 Other cervical disc degeneration, unspecified cervical region; G43.909 Migraine, unspecified, not intractable, without status migrainosus; I42.2 Other hypertrophic cardiomyopathy
CPT/HCPCS: G0463

== ENCOUNTER → 2021-05-18 14:45 | Outpatient (BNVA) | payer OTHER, SELFPAY | PROVIDERS: PCP Emergency Medicine Emergency Medical Services; Visit Provider Specialist | DX: G43.709 Chronic migraine without aura, not intractable, without status migrainosus (principal); G24.4 Idiopathic orofacial dystonia | CPT/HCPCS: 64615; J0585 ==

== ENCOUNTER → 2021-05-27 16:10 | Outpatient (BNVA) | payer OTHER, SELFPAY | PROVIDERS: PCP Emergency Medicine Emergency Medical Services; Visit Provider Surgery | DX: Z20.822 Contact with and (suspected) exposure to COVID-19 (principal); Z01.812 Encounter for preprocedural laboratory examination | CPT/HCPCS: 87635 ==

== ENCOUNTER 2021-05-31 05:45 | Day surgery (SDC) | payer OTHER, SELFPAY ==
[2021-05-30 11:26] VITALS: BMI 26.9
[2021-05-31] VITALS (7 sets, daily range): BP systolic 116–151; BP diastolic 82–96; PULSE 78–105; RESP 16–18; TEMP 36.3–36.4; O2SAT 95–99
[2021-05-31] MEDS: sodium chloride 0.9% 1,000 ML 30 ML IV (06:16)
[2021-05-31] MEDS: acetaminophen 1,000 MG/100 ML PIGGYBACK 400 MG IV (06:17)
--- NOTE | 2021-05-31 06:19 | W.PM.OPSUD ---
Surgery/Procedure H&P Update DATE OF PROCEDURE: May 31, 2021 DATE H&P PERFORMED: 05/18/21 CHANGES TO PREVIOUS DOCUMENTATION: None PREOP DIAGNOSIS: Bilateral thigh masses PRIMARY INDICATION FOR PROCEDURE: The same PLANNED PROCEDURE: Operation Date: 05/31/21 07:00 Proposed Procedures p Excision Mass x 2 of left and right thigh 99363/Lesion/Cyst Lower Extremit/R22.40(Bilateral) - Seth Dasilva MD
[2021-05-31] MEDS: scopolamine 1.5 Patch 1 PATCH TRANSDERMA (06:23)
--- NOTE | 2021-05-31 06:52 | ANES.PREANE2 ---
Pre-Anesthetic Assessment Height/Weight: Height 1.8 m Weight 87.543 kg Pulse Resp BP Pulse Ox 88 18 151/89 99 05/31/21 06:08 05/31/21 06:08 05/31/21 06:08 05/31/21 06:08 Preop Diagnosis: Bilateral thigh masses Operation Date: 05/31/21 07:00 Proposed Procedures p Excision Mass x 2 of left and right thigh 34537/Lesion/Cyst Lower Extremit/R22.40(Bilateral) - Seth Dasilva MD Familial anesthetic complications: PONV Was Beta Corby taken within 24 hours: N/A Was Clonidine taken within 24 hours: N/A Last intake: Intake Last Liquid Date 05/30/21 Last Liquid Time 21:30 Last Solid Date 05/30/21 Last Solid Time 19:00 Social No alcohol and No tobacco Exam alert, oriented x 3, clear to auscultation bilaterally and regular rate & rhythm Airway Cervical ROM: Other (cervical fusion) Mallampati: Class II Dentition: other (2 implants) CV/HEM Hypertension Metabolic raynaud's, behcet disease, fibromyalgia, SLE Musc/skel Severe TMJ, with ruptured disc in Right side 2 cervical fusions Anesthetic Plan ASA status: 3 Anesthesia: General Risk of > 500 ml blood loss (7ml/kg in children): No Medications/Allergies Home Medications Medication Instructions Recorded Confirmed Last Taken Type adalimumab 40 mg/0.8 mL 40 mg SUBCUT .WEEKLY each 04/10/19 05/30/21 05/24/21 History subcutaneous pen kit colchicine 0.6 mg capsule 0.6 mg PO BID 04/10/19 05/31/21 05/30/21 History cyclobenzaprine 10 mg tablet 10 mg PO TID 06/03/20 05/31/21 05/30/21 History quetiapine 300 mg tablet (Seroquel) 300 mg PO DAILY 06/03/20 05/31/21 05/30/21 History Allergies Allergy/AdvReac Type Severity Reaction Status Date / Time Sulfa (Sulfonamide Allergy Severe ALGY-Anaphy Verified 05/30/21 11:17 Antibiotics) laxis adhesive tape Allergy ALGY-Bliste Verified 05/31/21 06:05 r Current Medications Generic Name Dose Route Start Last Admin Trade Name Freq PRN Reason Stop Dose Admin Sodium Chloride 1,000 mls @ 30 mls/hr 05/31/21 06:00 05/31/21 06:16 Sodium Chloride 0.9% IV 06/01/21 05:59 30 mls/hr .Q24H STEW Administration PFSH Anesthesia Medical History Behcet's disease Fibromyalgia Hypertension Lupus (systemic lupus erythematosus) Raynauds disease Ulcerative colitis Social History Smoking and tobacco status: never smoked Data Anesthesia Cardiac Studies: No Data to Display
[2021-05-31] MEDS: lidocaine 2% INJ 20 mL INJECTION (07:17)
--- NOTE | 2021-05-31 07:44 | P.OP_ITS ---
Operative Report Date of procedure: May 31, 2021 Pre-op diagnosis: Preop Diagnosis Bilateral thigh masses Post-op diagnosis: Right and left thigh masses lipoma Procedure done: Excision of right and left thigh masses Specimens removed/disposition: Right thigh lipoma 3x3 cm Left thigh lipoma 2 x 2 centimeter Surgeon: Seth Dasilva MD Medical Technologist Prn: Surgical snow Yadav Circulating nurse Nancy Del Real Estimated blood loss (mL): 5 IV fluids: 500 Procedure: After identifying the patient holding area, both thighs were marked before the procedure by myself in the presence of historic preservationist nursing staff. patient was then taken to the operative suite, was placed in supine position, LMA was placed by the anesthesia provider prophylactic IV antibiotics were given per protocol, the left thigh was placed in a frog position, prep and drape of both thighs and groin regions were done under the usual sterile technique. Time-out was done verifying the patient's name/date of /planned procedure and destination after the procedure, all were in agreement. After palpation of the right thigh mass and I did an transvers incision on top of the mass corresponding to the skin crease , dissection was carried after the skin incision all the way to the subcutaneous tissues, clinically consistent with lipoma 3 x 3 cm the specimen was then passed to the circulating nurse for permanent pathology. Thorough irrigation of the cavity was done and hemostasis, followed by deep dermal closure by 3-0 Vicryl, then 4-0 Monocryl for skin closure. Attention was now deviated towards the left thigh mass and incision was created and another lipoma was revealed 2 x 2 cm confined to the subcutaneous layer. Was excised and sent for permanent pathology. Followed by irrigation and closure in the same manner like the right one. Lidocaine 2% was injected at the site of the incision that prior to the injection aspiration was done to make sure no injection is going into any vessel, followed by Steri-Strips and pressure dressing. Patient tolerated the procedure well, count of instruments, needles and sponges were completed at the end of the procedure. And then patient was taken to the recovery area in stable condition. I Was present for the whole entire procedure
[2021-05-31] MEDS: promethazine 25 mg/mL SDV 1 mL 12.5 MG IM (08:40)
--- NOTE | 2021-05-31 09:07 | SUR.PHASEII ---
PATIENT STATES NAUSEA HAS SUBSIDED, READY TO GO HOME.
--- NOTE | 2021-05-31 09:09 | ANE.PACU2 ---
Inpatient post-anesthesia follow up: Airway intact: Yes Vital signs: Temperature 97.4 F Pulse Rate 78 Respiratory Rate 18 Blood Pressure 148/88 Pulse Oximetry 95 Oxygen Delivery Me thod Room Air Oxygen Flow Rate 3 Fraction of Inspir ed Oxygen Hydration adequate: Yes Nausea and vomiting: No Pain level: 2 Mental status: Baseline
== END 2021-05-31 09:22 | disposition home or self-care (01) ==
PROVIDERS: PCP Emergency Medicine Emergency Medical Services; Visit Provider Surgery
PROC: (CPT 11402; principal; 2021-05-31 07:00)
DX: D17.24 Benign lipomatous neoplasm of skin and subcutaneous tissue of left leg (principal); D17.23 Benign lipomatous neoplasm of skin and subcutaneous tissue of right leg; I10 Essential (primary) hypertension; M79.7 Fibromyalgia
CPT/HCPCS: 11402; 11403; 12032; 88304; 88307; J0690; J1100; J2250; J2370; J2405; J2550; J2704; J3010; J7030

== ENCOUNTER → 2021-08-11 15:22 | Outpatient (BNVA) | payer OTHER, SELFPAY | PROVIDERS: PCP Emergency Medicine Emergency Medical Services; Visit Provider Specialist | DX: G43.911 Migraine, unspecified, intractable, with status migrainosus (principal); G24.4 Idiopathic orofacial dystonia | CPT/HCPCS: 64615; J0585 ==

== ENCOUNTER → 2021-12-20 14:35 | Outpatient (BNVA) | payer OTHER, SELFPAY | PROVIDERS: PCP Emergency Medicine Emergency Medical Services; Visit Provider Specialist | DX: G43.711 Chronic migraine without aura, intractable, with status migrainosus (principal); G24.4 Idiopathic orofacial dystonia | CPT/HCPCS: 64615 ==

== ENCOUNTER 2022-01-09 13:27 | Outpatient (CLI) | payer OTHER, SELFPAY ==
--- NOTE | 2022-01-09 13:32 | MM_ITS ---
WS: [id number] BILATERAL 3D TOMOSYNTHESIS DIGITAL SCREENING MAMMOGRAPHY WITH CAD CLINICAL INFORMATION: Z12.39 - Encounter for other screening for malignant neop... HISTORY: Screening mammogram. No current complaints. COMPARISON: December 01, 2020 TECHNIQUE: Bilateral CC and MLO views. FINDINGS: Bilateral breast implants appear intact. A few incidental punctate calcifications. Scattered fibroglandular densities bilaterally. No suspicious focal mass, asymmetry, calcifications, or architectural distortion. No evidence of malignancy. MM/[place] [id number] IMPRESSION: BI-RADS: 2-Benign FOLLOW UP: 1 Year Follow-up Recommend return to annual screening mammography.
== END 2022-01-09 13:28 | disposition home or self-care (01) ==
PROVIDERS: PCP Emergency Medicine Emergency Medical Services; Visit Provider Obstetrics & Gynecology
DX: Z12.31 Encounter for screening mammogram for malignant neoplasm of breast (principal)
CPT/HCPCS: 77063; 77067

== ENCOUNTER → 2022-03-16 14:09 | Outpatient (BNVA) | payer OTHER, SELFPAY | PROVIDERS: PCP Emergency Medicine Emergency Medical Services; Visit Provider Specialist | DX: G43.711 Chronic migraine without aura, intractable, with status migrainosus (principal) | CPT/HCPCS: 64615; 95911; J0585 ==

== ENCOUNTER → 2022-07-27 15:10 | Outpatient (BNVA) | payer OTHER, SELFPAY | PROVIDERS: PCP Emergency Medicine Emergency Medical Services; Visit Provider Specialist | DX: G43.711 Chronic migraine without aura, intractable, with status migrainosus (principal) | CPT/HCPCS: 64615; J0585 ==

== ENCOUNTER → 2022-11-09 15:52 | Outpatient (BNVA) | payer OTHER, SELFPAY | PROVIDERS: PCP Emergency Medicine Emergency Medical Services; Visit Provider Specialist | DX: M32.9 Systemic lupus erythematosus, unspecified (principal); M35.2 Behcet's disease; K51.90 Ulcerative colitis, unspecified, without complications; R55 Syncope and collapse; G24.4 Idiopathic orofacial dystonia; G43.711 Chronic migraine without aura, intractable, with status migrainosus | CPT/HCPCS: 64615; 99214; J0585 ==

== ENCOUNTER → 2023-01-22 12:07 | Outpatient (BNVA) | payer OTHER, SELFPAY | PROVIDERS: PCP Emergency Medicine Emergency Medical Services; Referring Provider Specialist; Visit Provider Internal Medicine | DX: E03.9 Hypothyroidism, unspecified (principal); E21.5 Disorder of parathyroid gland, unspecified; R63.5 Abnormal weight gain; Z79.890 Hormone replacement therapy; Z68.27 Body mass index [BMI] 27.0-27.9, adult; M32.9 Systemic lupus erythematosus, unspecified; M35.2 Behcet's disease; I73.00 Raynaud's syndrome without gangrene | CPT/HCPCS: 99204 ==

== ENCOUNTER → 2023-01-29 15:45 | Outpatient (BNVA) | payer OTHER, SELFPAY | PROVIDERS: PCP Emergency Medicine Emergency Medical Services; Visit Provider Specialist | DX: I95.9 Hypotension, unspecified (principal); R55 Syncope and collapse; G47.19 Other hypersomnia; G47.52 REM sleep behavior disorder; G43.909 Migraine, unspecified, not intractable, without status migrainosus | CPT/HCPCS: 99215 ==

== ENCOUNTER → 2023-02-08 15:52 | Outpatient (BNVA) | payer OTHER, SELFPAY | PROVIDERS: PCP Emergency Medicine Emergency Medical Services; Visit Provider Specialist | DX: G47.52 REM sleep behavior disorder (principal); I95.9 Hypotension, unspecified; R00.0 Tachycardia, unspecified; G43.711 Chronic migraine without aura, intractable, with status migrainosus | CPT/HCPCS: 64615; 99213; J0585 ==

== ENCOUNTER → 2023-02-28 09:03 | Outpatient (BNVA) | payer OTHER, SELFPAY | PROVIDERS: PCP Emergency Medicine Emergency Medical Services; Visit Provider Internal Medicine | DX: E03.9 Hypothyroidism, unspecified (principal); E21.5 Disorder of parathyroid gland, unspecified | CPT/HCPCS: 82310; 82533; 83970; 84439; 84443; 86376; 86800 ==

== ENCOUNTER → 2023-03-20 08:04 | Outpatient (BNVA) | payer OTHER, SELFPAY | PROVIDERS: PCP Emergency Medicine Emergency Medical Services; Visit Provider Specialist | DX: G47.52 REM sleep behavior disorder (principal); R56.9 Unspecified convulsions; G43.911 Migraine, unspecified, intractable, with status migrainosus | CPT/HCPCS: 95819 ==

== ENCOUNTER → 2023-03-23 11:39 | Outpatient (BNVA) | payer OTHER, SELFPAY | PROVIDERS: PCP Emergency Medicine Emergency Medical Services; Visit Provider Internal Medicine | DX: E03.9 Hypothyroidism, unspecified (principal); E21.5 Disorder of parathyroid gland, unspecified; R63.5 Abnormal weight gain; Z79.890 Hormone replacement therapy; Z68.28 Body mass index [BMI] 28.0-28.9, adult | CPT/HCPCS: 36415; 84439; 84443; 99214 ==

== ENCOUNTER → 2023-05-10 14:41 | Outpatient (BNVA) | payer OTHER, SELFPAY | PROVIDERS: PCP Emergency Medicine Emergency Medical Services; Visit Provider Specialist | DX: G40.209 Localization-related (focal) (partial) symptomatic epilepsy and epileptic syndromes with complex partial seizures, not intractable, without status epilepticus (principal); G43.711 Chronic migraine without aura, intractable, with status migrainosus; G24.4 Idiopathic orofacial dystonia | CPT/HCPCS: 64615; 99214; J0585 ==

== ENCOUNTER 2023-06-18 15:41 | Outpatient (CLI) | payer OTHER, SELFPAY ==
--- NOTE | 2023-06-18 16:00 | MR_ITS ---
WS: [id number] MRI BRAIN WITHOUT CONTRAST HISTORY: G40.209 - Localization-related (focal) (partial) symptoma... COMPARISON: 04/16/2017 TECHNIQUE: Diffusion imaging, multiplanar T1, T2 and FLAIR imaging obtained. No evidence for acute infarct or hemorrhage. Baez-white matter differentiation is normal. No remote or acute infarcts are volume loss. Normal hippocampal formations. No prior infarcts. Ventricles and extra-axial spaces are normal. No inferior displacement of cerebellar tonsils. The sella turcica and pituitary gland are unremarkabl e. Dural venous sinuses and [place] demonstrate no abnormality on this unenhanced studies. Paranasal sinuses: Opacification of the maxillary sinuses near complete. Bilateral mucous retention c ysts are reidentified. Increasing mucous retention cyst in the RIGHT maxillary sinus. Remaining sinus es are negative. Mastoid air cells: Normal. Calvarium and scalp: Intact. IMPRESSION: 1. No acute infarct. 2. No signal abnormalities or prior infarct. 3. No hemorrhage or hydrocephalus. 4. No temporal lobe asymmetry or abnormality identified.
== END 2023-06-18 15:42 | disposition home or self-care (01) ==
LOC: RAD 15:42
PROVIDERS: PCP Emergency Medicine Emergency Medical Services; Visit Provider Specialist
DX: G40.209 Localization-related (focal) (partial) symptomatic epilepsy and epileptic syndromes with complex partial seizures, not intractable, without status epilepticus (principal)
CPT/HCPCS: 70551

== ENCOUNTER → 2023-07-18 12:17 | Outpatient (BNVA) | payer OTHER, SELFPAY | PROVIDERS: PCP Emergency Medicine Emergency Medical Services; Visit Provider Internal Medicine | DX: E03.9 Hypothyroidism, unspecified (principal); E21.5 Disorder of parathyroid gland, unspecified; R63.5 Abnormal weight gain | CPT/HCPCS: 36415; 84439; 84443; 99214 ==

== ENCOUNTER → 2023-08-06 15:55 | Outpatient (BNVA) | payer OTHER, SELFPAY | PROVIDERS: PCP Emergency Medicine Emergency Medical Services; Visit Provider Nurse Practitioner Family | DX: L21.8 Other seborrheic dermatitis (principal); M32.10 Systemic lupus erythematosus, organ or system involvement unspecified; M35.2 Behcet's disease; I73.00 Raynaud's syndrome without gangrene; L65.0 Telogen effluvium; L57.8 Other skin changes due to chronic exposure to nonionizing radiation; D22.5 Melanocytic nevi of trunk; L81.4 Other melanin hyperpigmentation; L82.1 Other seborrheic keratosis; L82.0 Inflamed seborrheic keratosis; Z85.828 Personal history of other malignant neoplasm of skin | CPT/HCPCS: 17110; 99214 ==

== ENCOUNTER → 2023-08-09 14:29 | Outpatient (BNVA) | payer OTHER, SELFPAY | PROVIDERS: PCP Emergency Medicine Emergency Medical Services; Visit Provider Specialist | DX: G43.711 Chronic migraine without aura, intractable, with status migrainosus (principal); G40.209 Localization-related (focal) (partial) symptomatic epilepsy and epileptic syndromes with complex partial seizures, not intractable, without status epilepticus | CPT/HCPCS: 64615; 99214; J0585 ==

== ENCOUNTER → 2023-11-22 15:08 | Outpatient (BNVA) | payer OTHER, SELFPAY | PROVIDERS: PCP Emergency Medicine Emergency Medical Services; Visit Provider Specialist | DX: I10 Essential (primary) hypertension; G43.711 Chronic migraine without aura, intractable, with status migrainosus; G40.209 Localization-related (focal) (partial) symptomatic epilepsy and epileptic syndromes with complex partial seizures, not intractable, without status epilepticus; I15.2 Hypertension secondary to endocrine disorders; I95.89 Other hypotension | CPT/HCPCS: 64615; 99214; J0585 ==

== ENCOUNTER 2023-12-04 20:00 | Outpatient (CLI) | payer OTHER, SELFPAY | END 2023-12-04 20:01 | disposition home or self-care (01) | LOC: SLEEP 12-05 01:20 | PROVIDERS: PCP Emergency Medicine Emergency Medical Services; Visit Provider Specialist | DX: G47.52 REM sleep behavior disorder (principal) | CPT/HCPCS: 95810 ==

== ENCOUNTER → 2024-02-27 15:28 | Outpatient (BNVA) | payer OTHER, SELFPAY | PROVIDERS: PCP Emergency Medicine Emergency Medical Services; Visit Provider Specialist | DX: G43.711 Chronic migraine without aura, intractable, with status migrainosus (principal); G40.209 Localization-related (focal) (partial) symptomatic epilepsy and epileptic syndromes with complex partial seizures, not intractable, without status epilepticus; I15.2 Hypertension secondary to endocrine disorders; I95.89 Other hypotension; R03.0 Elevated blood-pressure reading, without diagnosis of hypertension | CPT/HCPCS: 64615; 99212; J0585 ==

== ENCOUNTER → 2024-05-23 15:45 | Outpatient (BNVA) | payer OTHER, SELFPAY | PROVIDERS: PCP Emergency Medicine Emergency Medical Services; Visit Provider Specialist | DX: G43.711 Chronic migraine without aura, intractable, with status migrainosus (principal); G40.209 Localization-related (focal) (partial) symptomatic epilepsy and epileptic syndromes with complex partial seizures, not intractable, without status epilepticus; I15.2 Hypertension secondary to endocrine disorders; I95.89 Other hypotension; R03.0 Elevated blood-pressure reading, without diagnosis of hypertension | CPT/HCPCS: 64615; 99212; J0585 ==

== ENCOUNTER → 2024-08-05 15:38 | Outpatient (BNVA) | payer OTHER, SELFPAY | PROVIDERS: PCP Emergency Medicine Emergency Medical Services; Visit Provider Nurse Practitioner Family | DX: M32.10 Systemic lupus erythematosus, organ or system involvement unspecified (principal); I73.00 Raynaud's syndrome without gangrene; M35.2 Behcet's disease; L82.1 Other seborrheic keratosis; L57.8 Other skin changes due to chronic exposure to nonionizing radiation; L81.4 Other melanin hyperpigmentation; D22.5 Melanocytic nevi of trunk; Z08 Encounter for follow-up examination after completed treatment for malignant neoplasm; Z85.828 Personal history of other malignant neoplasm of skin | CPT/HCPCS: 99213 ==

== ENCOUNTER → 2024-08-22 14:53 | Outpatient (BNVA) | payer OTHER, SELFPAY | PROVIDERS: PCP Emergency Medicine Emergency Medical Services; Visit Provider Specialist | DX: G43.711 Chronic migraine without aura, intractable, with status migrainosus (principal) | CPT/HCPCS: 64615; 99212; J0585; J9999 ==

== ENCOUNTER → 2024-11-27 13:53 | Outpatient (BNVA) | payer OTHER, SELFPAY | PROVIDERS: PCP Emergency Medicine Emergency Medical Services; Visit Provider Specialist | DX: G43.711 Chronic migraine without aura, intractable, with status migrainosus (principal) | CPT/HCPCS: 64615; 99212; J0585; J9999 ==

== ENCOUNTER → 2025-03-05 15:08 | Outpatient (BNVA) | payer OTHER, SELFPAY | PROVIDERS: PCP Emergency Medicine Emergency Medical Services; Visit Provider Specialist | DX: G43.711 Chronic migraine without aura, intractable, with status migrainosus (principal) | CPT/HCPCS: 64615; J0585; J9999 ==